=== PATIENT | male | born 2000 | race Two or more races ===

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

== ENCOUNTER 2021-11-09 08:26 | Emergency (ER) | payer OTHER ==
[~2021-11-09] VITALS: Ht 177.8 cm; Wt 79.4 kg
[~2021-11-09 08:26] MED LIST: [UNRECOGNIZED DRUG - OTHER]
== END 2021-11-09 13:10 | disposition designated cancer center or children's hospital (05) ==
LOC: EMR PED 08:26
DX: K37 Unspecified appendicitis (principal); E86.0 Dehydration; K29.60 Other gastritis without bleeding; Z20.822 Contact with and (suspected) exposure to COVID-19
CPT/HCPCS: 74177; Q9965